=== PATIENT | male | born 2000 | race African-American/Black ===

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

== ENCOUNTER 2024-11-14 22:00 | Emergency (ER) | payer OTHER ==
[2024-11-15] MEDS ORDERED: Ibuprofen 800 MG TAB ONE (01:00)
== END 2024-11-15 01:01 | disposition home or self-care (01) ==
LOC: ERS 22:00
DX: S30.860A Insect bite (nonvenomous) of lower back and pelvis, initial encounter (principal); W57.XXXA Bitten or stung by nonvenomous insect and other nonvenomous arthropods, initial encounter
CPT/HCPCS: 99282